=== PATIENT | female | born 1950 | race Caucasian/White ===

== ENCOUNTER → 2017-07-26 | Outpatient (CLI) | payer MEDICARE ==
[~2017-07-26] MED LIST: ASPI-146 PO; ASPI-183 PO; CEPH500C3 PO; ENOX40IN SQ; HYDR12.56 PO; LORT7.5T3 PO; NORC5TAB PO; TELM1TAB56 PO; VALS320T6 PO
[2017-07-26 12:07] LABS: AUTOMATED NEUTROPHIL # 4.9 TH/MM3 (1.8-7.7); BASOPHIL % 0.5 % (0.0-2.0); EOSINOPHIL # 0.1 TH/MM3 (0-0.4); EOSINOPHIL % 1.5 % (0.0-4.0); HEMATOCRIT 42.1 % (35.0-46.0); HEMO FLAGS DIFF FINAL; LYMPH % 24.6 % (9.0-44.0); LYMPHOCYTE # 1.8 TH/MM3 (1.0-4.8); MEAN CELL VOLUME 89.7 FL (80.0-100.0); MEAN CORPUSCULAR HEMOGLOBIN 31.1 PG (27.0-34.0); MEAN CORPUSCULAR HGB CONC 34.7 % (32.0-36.0); MONO % 7.2 % (0.0-8.0); NEUT % 66.2 % (16.0-70.0); PLATELET COUNT 267 TH/MM3 (150-450); RED BLOOD COUNT 4.69 MIL/MM3 (4.00-5.30); RED CELL DISTRIBUTION WIDTH 14.2 % (11.6-17.2); WHITE BLOOD COUNT 7.4 TH/MM3 (4.0-11.0)
[2017-07-26 12:10] LABS: BLOOD, URINE NEG (NEG); COMMENT (UR) CULT NOT INDICATED; CULTURE IF INDICATED CULT NOT INDICATED; GLUCOSE,URINE NEG (NEG); KETONE, URINE NEG (NEG); MUCUS URINE FEW /lpf (OCC); NITRITE,URINE NEG (NEG); SQUAMOUS EPITHELIAL CELL URINE 1 /hpf (0-5); URINE COLOR LIGHT-YELLOW (YELLW/STRAW)
[2017-07-26 12:13] LABS: APTT (PATIENT) 27.1 SEC (24.3-30.1); PROTHROMBIN TIME - PATIENT 10.5 SEC (9.8-11.6)
[2017-07-26 12:48] LABS: WESTERGREN SEDIMENTATION RATE 15 mm/hr (0-30)
[2017-07-26 12:57] LABS: ALKALINE PHOSPHATASE 131 U/L (45-117); ALT (GPT) 24 U/L (10-53); ANION GAP 7 MEQ/L (5-15); AST (GOT) 13 U/L (15-37); BICARBONATE 28.2 MEQ/L (21.0-32.0); BLOOD UREA NITROGEN 10 MG/DL (7-18); CHLORIDE 102 MEQ/L (98-107); GLOMERULAR FILTRATION RATE 98 ML/MIN (>89); GLUCOSE,FASTING 93 MG/DL (74-99); POTASSIUM 4.1 MEQ/L (3.5-5.1); SODIUM (NA) 137 MEQ/L (136-145); TOTAL BILIRUBIN ADULT 0.4 MG/DL (0.2-1.0)
--- NOTE | 2017-07-26 13:02 | RADRPT ---
EXAM DATE/TIME: 07/26/2017 12:26 [facility] COMPARISON: No previous studies available for comparison. INDICATIONS : Evaluate for communicable disease, pneumothorax, pneumonia. Preop for total knee MEDICAL HISTORY : Hypertension. SURGICAL HISTORY : None. ENCOUNTER: Initial ACUITY: 1 day PAIN SCORE: 0/10 LOCATION: Bilateral chest FINDINGS: PA and lateral views of the chest demonstrate the lungs to be symmetrically aerated without evidence of mass, infiltrate or effusion. The cardiomediastinal contours are unremarkable. Osseous structure s are intact. CONCLUSION: No acute disease. Henrry Davila Jr., MD on July 26, 2017 at 13:00 Board Certified Radiologist. This report was verified electronically.
--- NOTE | 2017-07-27 14:33 | EKG ---
Date Performed: 07/26/2017 Time Performed: 11:45:01 PTAGE: 67 years EKG: Sinus rhythm WITH FIRST DEGREE AV BLOCK POSSIBLE LEFT ATRIAL ENLARGEMENT LOW QRS VOLTAGE IN PRECORDIAL LEADS NONS PECIFIC T-WAVE ABNORMALITY ABNORMAL ECG NO PREVIOUS TRACING DOCTOR: Sergei Gutierrez Interpretating Date/Time 07/27/2017 14:25:34
== END ==
LOC: CPRE 11:21
PROVIDERS: ATTEND Orthopaedic Surgery
DX: Z01.812 Encounter for preprocedural laboratory examination (principal); Z01.811 Encounter for preprocedural respiratory examination; Z01.810 Encounter for preprocedural cardiovascular examination; M79.609 Pain in unspecified limb; M25.50 Pain in unspecified joint; I44.0 Atrioventricular block, first degree; Z96.60 Presence of unspecified orthopedic joint implant
CPT/HCPCS: 36415; 71020; 80053; 81001; 85025; 85610; 85652; 85730; 93005

== ENCOUNTER 2017-08-11 08:51 | Inpatient (IN) | payer MEDICARE ==
[~2017-08-11] VITALS: Ht 162.6 cm; Wt 86.9 kg
[~2017-08-11 08:51] MED LIST changes: -ASPI-146 PO; -CEPH500C3 PO; -ENOX40IN SQ; -HYDR12.56 PO; -LORT7.5T3 PO; -NORC5TAB PO; -TELM1TAB56 PO
[2017-08-11] MEDS ORDERED: METOPROLOL TARTRATE 25 MG TAB PO PRN (10:15)
[2017-08-11] MEDS ORDERED: LACTATED RINGER'S 1000 ML IV PRN (10:15)
[2017-08-11] MEDS ORDERED: POVIDONE IODINE 5% (ANTISEPSIS KIT) 4 APPLICATIONS EACH NARE PRN (10:15)
[2017-08-11] MEDS ORDERED: CHLORHEXIDINE GLUCONATE 2 % 1 PACK (2 CLOTHS) TOPICAL PRN (10:15)
[2017-08-11] MEDS ORDERED: SODIUM CHLORID 0.9% 500 ML IV PRN (10:15)
[2017-08-11] MEDS ORDERED: POVIDONE IODINE 7.5% SCRUB 118 ML BOTTLE TOPICAL SCH (10:30)
[2017-08-11] MEDS ORDERED: VANCOMYCIN 1000 MG/NS 250 ML (for <70 kg) IV SCH ×2 (10:30)
[2017-08-11] MEDS ORDERED: ceFAZolin 2 GM PREMIX 50 ML IV SCH (10:30)
[2017-08-11] MEDS ORDERED: ROPIVACAINE PERI-ARTICULAR INJECTION. P-ARTICULR SCH ×5 (10:30)
[2017-08-11] MEDS ORDERED: DEXAMETHASONE SOD PHOS 20 MG/5 ML VIAL IV SCH (10:45)
[2017-08-11] MEDS ORDERED: GENTAMICIN SULFATE 80 MG/2 ML VIAL ONE (11:25)
[2017-08-11] MEDS ORDERED: BUPIVACAINE LIPOSOME PF 1.3% 20 ML VIAL ONE (11:26)
[2017-08-11] MEDS ORDERED: MIDAZOLAM HCL 2 MG/2 ML VIAL ONE (11:36)
[2017-08-11] MEDS: TRANEXAMIC ACID INJ 870 MG in SODIUM CHLORIDE 0.9% INJ 100 ML IV SCH ×2 (11:55→12:50)
--- NOTE | 2017-08-11 13:55 | PD.OP ---
cc: Guero Garcia MD Operative Report Date of Surgery: Aug 11, 2017 Preoperative Diagnosis: Right knee failed unicondylar medial arthroplasty Postoperative Diagnosis: Same Procedure: Right knee revision total knee arthroplasty Anesthesia: Spinal and adductor canal block Surgeon: Guero Garcia Stretcher Operator(s): KODY Ochoa The surgical procedure was assisted by my Advanced Registered Nurse Practitioner. My PROPERTY ADJUSTER presence was necessary throughout this case for the manipulation and positioning of the surgical extremity. My PROPERTY ADJUSTER was assisting me throughout the duration of this procedure. The skill set of an Advance Registered Nurse Practitioner was medically necessary to complete this procedure. During the surgical case, the archives technician was working at the back table and the Advance Registered Nurse Practitioner was directly assisting me. Operation and Findings: IMPLANTS: DePuy Attune: Patella: size 35. Femur, posterior stabilized size 5. Tibia, rotating platform size 5. Tibial insert, rotating platform, posterior stabilized size 6 mm thickness. ESTIMATED BLOOD LOSS: 250 cc TOURNIQUET TIME: 48 minutes at 250 mmHg pressure. JUSTIFICATION FOR PROCEDURE: This patient had previously undergone a partial medial unicondylar arthroplasty. There was failure of this construct with shifting and change in position of the all polyethylene tibial component. PROCEDURE: The patient was brought back to the operative theatre. Adequate anesthesia was obtained. The patient received intravenous vancomycin and Ancef. The lower extremity was prepped and draped in the usual sterile fashion.The leg was exsanguinated, the tourniquet was raised. We incorporated the previous medial/anterior incision into a curvilinear anterior incision. This was Followed by medial parapatellar arthrotomy was performed. There was a moderate amount of effusion which was brownish fluid that had increased viscosity with small fatty blobby levels noted. No gross purulence was noted. We took a fluid swab culture of this. Additionally we excised some brownish grayish synovium and sent this for a permanent tissue culture. Osteotomy of the patella was performed. We drilled holes for the patella. We trialed the patella component. We placed an intramedullary guide into the distal femur. We measured for a distal femoral resection, with the previous femoral component in position. We then removed the femoral component using osteotomes. The femoral component was well fixed. When we remove the component we did not lose significant bone. We ultimately resected 12 mm off of the distal femur in 5 degrees of valgus. The remnants of the ACL and PCL were resected. The tibial component was inspected. There were fragments of cement that were noted around the baseplate which were loose and out of position. The baseplate was significantly rotated. The polyethylene itself did not show any significant signs of wear characteristics. Osteotomy of the proximal tibia was performed, resecting 5 mm off of the medial side, which equaled 12 mm off of the lateral side. This got us entirely below the previous tibial component and its cement mantle. This was done with 3 degrees of posterior slope using an extramedullary guide. The distal end of the guide was placed in the mid aspect of the ankle. The femur was sized, and four chamfer cuts were completed in 3 of external rotation. We confirmed that rotation was correct by using the epicondylar axis as well. We then cut the central box in the distal femur to replace the PCL. We resected the remnants of the menisci and removed osteophytes off of the femur and tibia. We then trialed the knee. We punched the tibia for the keel, and then used standard technique to cement in components. Excess cement was removed. We trialed the knee again and the final polyethylene thickness was chosen to provide extension to 0 degrees, and flexion of 130 degrees to gravity, and 140 with gentle pressure. The ligaments were appropriately balanced. Lateral release was necessary to obtain excellent patellofemoral tracking. The tourniquet was released and adequate hemostasis was obtained. An intra- articular injection of a ropivacaine cocktail was injected. The posterior knee was inspected for excess cement, which was removed. The final polyethylene was put into position after thorough irrigation. We then closed deep fascia with a #2 Stratafix followed by skin with 2-0 Vicryl followed by darlin. Postop plan is to weight-bear as tolerated. DVT prophylaxis will be performed with SCDfili, FAMILIA gale, early mobilization, and Lovenox followed by aspirin. Guero Garcia MD Aug 11, 2017 13:55
[2017-08-11] MEDS ORDERED: ENOX40IN SQ (13:57)
[2017-08-11] MEDS ORDERED: NORC5TAB PO (13:57)
[2017-08-11] MEDS ORDERED: ASPI-146 PO (13:57)
[2017-08-11] MEDS ORDERED: ONDANSETRON HCL 4 MG/2 ML VIAL IVP PRN (14:00)
[2017-08-11] MEDS ORDERED: Post-op Orders (for Pharmacy) MISC XX ONE (14:00)
[2017-08-11] MEDS ORDERED: MORPHINE SULFATE 4 MG/ML INJ IV PUSH PRN (14:00)
[2017-08-11] MEDS ORDERED: MAGNESIUM HYDROXIDE SUSP 30 ML CUP PO PRN (14:00)
[2017-08-11] MEDS ORDERED: diphenhydrAMINE HCL 50 MG/ML VIAL IV PUSH PRN (14:00)
[2017-08-11] MEDS ORDERED: ALUMINUM/MAGNESIUM/SIMETH 30 ML CUP PO PRN (14:00)
[2017-08-11] MEDS ORDERED: NALOXONE HCL 0.4 MG/ML AMP IV PUSH PRN (14:00)
[2017-08-11] MEDS ORDERED: ACETAMINOPHEN/HYDROcodone 325 MG/5 MG TAB PO PRN (14:00)
[2017-08-11] MEDS ORDERED: BISACODYL 10 MG SUPP RECTAL PRN (14:00)
[2017-08-11] MEDS ORDERED: DO NOT ADM ANY ANTICOAGULANT DRUGS PRN (14:14)
--- NOTE | 2017-08-11 14:25 | HHI.DCPOC ---
Discharge Care Plan Diagnosis: (1) Mechanical complic of internal orthopedic device, implant or graft (2) Primary localized osteoarthrosis, lower leg (3) Status post total knee replacement, left Your Health Problems Are: Difficulty with ADL Goals to Promote Your Health * To prevent worsening of your condition and complications * To maintain your health at the optimal level Directions to Meet Your Goals Take your medications as prescribed Follow your dietary instruction Follow activity as directed Keep your appointments as scheduled Take your immunizations and boosters as scheduled If your symptoms worsen call your PCP, if no PCP go to Urgent Care Center or Emergency Room Smoking is Dangerous to Your Health. Avoid second hand smoke Call the 24-hour hour crisis hotline for domestic abuse at Librado Naik Aug 11, 2017 14:25
--- NOTE | 2017-08-11 14:26 | HHI.FF ---
Face to Face Verification Diagnosis: (1) Primary localized osteoarthrosis, lower leg (2) Mechanical complic of internal orthopedic device, implant or graft (3) Status post total knee replacement, left Physical Therapy Gait training, Transfer training, bed to chair Knee: Total knee Left LE Weight Bearing: WB as tolerated Left LE Range of Motion: Active ROM Nursing Nursing: Sigifredo teaching, Dressing changes Dressing Changes: Daily dressing change I have seen patient Zulma Cantor on 08/11/17. My clinical findings support the need for the requested home health care services because: Limited ability to care for self High risk of falls I certify that my clinical findings support that this patient is homebound because: Post-op weakness Unsteady gait/balance Librado Naik Aug 11, 2017 14:26
[2017-08-11] MEDS ORDERED: COMMODE 3-IN-11 MIS (14:28)
[2017-08-11] MEDS ORDERED: WALKER WHEELS/F1 MIS (14:28)
[2017-08-11] MEDS ORDERED: CPMMACHINE (14:28)
[2017-08-11] MEDS ORDERED: PROPOFOL 500 MG/50 ML INJ 50 ML ONE (14:29)
[2017-08-11] MEDS: SODIUM CHLOR 0.9% 1000 ML INJ 1,000 ML IV SCH (14:39)
--- NOTE | 2017-08-11 14:57 | RADRPT ---
EXAM DATE/TIME: 08/11/2017 14:25 [facility] COMPARISON: No previous studies available for comparison. INDICATIONS : Post op left total knee replacement. MEDICAL HISTORY : None. SURGICAL HISTORY : Right total knee. ENCOUNTER: Initial ACUITY: 1 day PAIN SCORE: 0/10 LOCATION: Left Knee FINDINGS: AP and lateral views of the knee following arthroplasty reveals a prosthesis in anatomic alignment. F racture is not appreciated. CONCLUSION: Status post total knee arthroplasty. Higinio Early MD FACR on August 11, 2017 at 14:55 Board Certified Radiologist. This report was verified electronically.
[2017-08-11] MEDS ORDERED: SODIUM CHLORIDE 0.9% IV SCH (16:00)
[2017-08-11] MEDS ORDERED: TRANEXAMIC ACID IV SCH (16:00)
[2017-08-11 17:08] VITALS: BP 158/93; PULSE 102; RESP 18; TEMP 96.8; O2SAT 94
[2017-08-11] MEDS ORDERED: cloNIDine HCL 0.1 MG TAB PO PRN (19:45)
--- NOTE | 2017-08-11 19:49 | PD.CONS ---
HPI Service [facility] Hospitalists Consult Requested By Guero Rae Reason for Consult Medical management Primary Care Physician Rodrigo Brand MD Diagnoses: History of Present Illness This is a 67-year-old white female who presents to [facility] for an elective revision of left knee arthroplasty who underwent total left knee replacement today. The patient states that she has a history of also arthritis in bilateral knees status post partial knee replacements in 2011. The patient states she has been experiencing worsening pain in the left knee, recent why she went to visit Dr. Garcia. The patient currently denies any chest pain, shortness of breath, fevers, chills, nausea, vomiting, diarrhea, dizziness, dysuria. The patient states that her blood pressure has been very unstable and elevated this past week but she believes this is due to anxiety and stress due to the upcoming surgery. Patient has minimal pain in the left knee which is 2/ 10 in intensity and is it is nonradiating. Patient also elicit some pain in the left thigh. Review of Systems As per history of present illness, other systems reviewed by me and negative. Past Family Social History Allergies: Coded Allergies: Sulfa (Sulfonamide Antibiotics) (Unverified Adverse Reaction, Severe, DIARRHEA, 07/26/17) VOMITING AND DIARRHEA Past Medical History 1. Hypertension. 2. Reported Medications Reported Meds & Active Scripts Active Enoxaparin Inj (Enoxaparin Sodium) 40 Mg/0.4 Ml Syr 40 Mg SQ DAILY Start Aspirin after Lovenox is completed. Ecotrin Regular Strength (Aspirin) 325 Mg Tabdr 325 Mg PO DAILY Start Aspirin after Lovenox is completed. [place] (Hydrocodone-Acetaminophen) 5 Mg-325 Mg Tab 1-2 Tab PO Q4H PRN Reported Aspirin 325 Mg Tab 325 Mg PO DAILY Valsartan-Hydrochlorothiazide 320-25 Mg Tab 1 Tab PO DAILY Active Ordered Medications Current Medications Medications (Trade) Dose Ordered Sig/Urban Route Start Time Stop Time Status Last Admin Lactated Ringer's 1,000 ml @ 30 mls/hr Q24H PRN IV 08/11/17 10:15 08/14/17 10:14 08/11/17 10:25 Sodium Chloride 500 ml @ 30 mls/hr [id number] PRN IV 08/11/17 10:15 08/14/17 10:14 (Lopressor) 25 mg EDI COORDINATOR PRN PO 08/11/17 10:15 08/14/17 10:14 (Betadine 5% Antisepsis Kit) 1 applic EDI COORDINATOR PRN EACH NARE 08/11/17 10:15 08/14/17 10:14 08/11/17 10:35 (Chlorhexidine 2% Cloth) 3 pack EDI COORDINATOR PRN TOPICAL 08/11/17 10:15 08/14/17 10:14 08/11/17 10:00 (Betadine 7.5% Scrub) 1 applic ONCE TOPICAL 08/11/17 10:30 08/14/17 10:29 08/11/17 10:00 Cefazolin Sodium/ Dextrose 50 ml @ 100 mls/hr EDI COORDINATOR IV 08/11/17 10:30 08/14/17 10:29 Vancomycin HCl 1000 mg/Sodium Chloride 250 ml @ 250 mls/hr EDI COORDINATOR IV 08/11/17 10:30 08/14/17 10:29 08/11/17 10:56 Ropivacaine 24.63 ml/Ketorolac Tromethamine 30 mg/Epinephrine HCl 0.5 mg/ Clonidine 80 mcg/ Sodium Chloride 100 ml @ 200 mls/hr EDI COORDINATOR P-ARTICULR 08/11/17 10:30 08/14/17 10:29 08/11/17 12:51 (Decadron Inj) 10 mg EDI COORDINATOR IV 08/11/17 10:45 08/11/17 10:55 Sodium Chloride 1,000 ml @ 100 mls/hr Q10H IV 08/11/17 15:00 08/11/17 14:39 Cefazolin Sodium 1000 mg/Sodium Chloride 100 ml @ 200 mls/hr Q6H IV 08/11/17 17:00 08/12/17 05:29 08/11/17 16:52 (Decadron Inj) 10 mg ONCE ONCE IV 08/12/17 07:45 08/12/17 07:46 (Lovenox Inj) 40 mg Q24H SQ 08/12/17 13:00 08/21/17 13:01 ([place] 5-325 Mg) 1 tab Q4H PRN PO 08/11/17 14:00 ([place] 5-325 Mg) 2 tab Q4H PRN PO 08/11/17 14:00 Tranexamic Acid 869 mg/Sodium Chloride 108.69 ml @ 200 mls/ hr UNSCH IV 08/11/17 16:00 08/11/17 22:00 08/11/17 15:30 (Theragran M Tab) 1 tab BID PO 08/12/17 21:00 10/11/17 20:59 (Zofran Inj) 4 mg Q6H PRN IVP 08/11/17 14:00 (Colace) 100 mg BID PO 08/12/17 21:00 (Mag-Al Plus Susp Liq) 30 ml Q6H PRN PO 08/11/17 14:00 (Ambien) 5 mg HS PRN PO 08/11/17 21:00 (Dulcolax Supp) 10 mg DAILY PRN RECTAL 08/11/17 14:00 (Milk Of Magnesia Liq) 30 ml DAILY PRN PO 08/11/17 14:00 (Narcan Inj) 0.4 mg UNSCH PRN IV PUSH 08/11/17 14:00 (Benadryl Inj) 25 mg Q6H PRN IV PUSH 08/11/17 14:00 (Morphine Inj) 2 mg Q3H PRN IV PUSH 08/11/17 14:00 Miscellaneous Information ALL NURSING DEPARTME... UNSCH PRN .XX 08/11/17 14:14 08/12/17 14:13 (Diovan) 320 mg DAILY PO 08/12/17 09:00 (Hydrodiuril) 25 mg DAILY PO 08/12/17 09:00 Physical Exam Vital Signs Vital Signs Date Time Temp Pulse Resp B/P (MAP) Pulse Ox O2 Delivery O2 Flow Rate FiO2 08/11/17 17:08 96.8 102 18 158/93 (114) 94 08/11/17 17:00 97.4 100 18 146/76 (99) 94 Room Air 08/11/17 16:00 97 18 140/71 (94) 95 Room Air 08/11/17 15:45 97 18 141/73 (95) 98 Room Air 08/11/17 15:30 95 18 143/73 (96) 96 Nasal Cannula 2 08/11/17 15:15 92 21 132/70 (90) 96 Nasal Cannula 2 08/11/17 15:00 91 20 133/70 (91) 93 Nasal Cannula 2 08/11/17 14:45 91 21 125/65 (85) 96 Nasal Cannula 2 08/11/17 14:30 91 22 125/67 (86) 94 Nasal Cannula 2 08/11/17 14:15 93 25 116/66 (83) 94 Nasal Cannula 2 08/11/17 14:13 97.4 94 20 115/66 (82) 93 Nasal Cannula 2 08/11/17 10:38 98.1 79 18 164/97 (119) 97 Physical Exam GENERAL: This is a well-nourished, well-developed patient, in no apparent distress. SKIN: No rashes, ecchymoses or lesions. Cool and dry. HEAD: Atraumatic. Normocephalic. No temporal or scalp tenderness. EYES: Pupils equal round and reactive. Extraocular motions intact. No scleral icterus. No injection or drainage. ENT: Nose without bleeding, purulent drainage or septal hematoma. Throat without erythema, tonsillar hypertrophy or exudate. Uvula midline. Airway patent. NECK: Trachea midline. No JVD or lymphadenopathy. Supple, nontender, no meningeal signs. CARDIOVASCULAR: Regular rate and rhythm without murmurs, gallops, or rubs. RESPIRATORY: Clear to auscultation. Breath sounds equal bilaterally. No wheezes , rales, or rhonchi. GASTROINTESTINAL: Abdomen soft, non-tender, nondistended. No hepato-splenomegaly , or palpable masses. No guarding. MUSCULOSKELETAL: Extremities without clubbing, cyanosi. Left knee is in an immobilizer, moderately swollen and tender to palpation. Patient also has some tenderness in the left thigh. No calf tenderness. Negative Homans sign bilaterally. NEUROLOGICAL: Awake and alert. Cranial nerves II through XII intact. Motor and sensory grossly within normal limits. Five out of 5 muscle strength in all muscle groups. Normal speech. Laboratory Date/Time Source Procedure Growth Status 08/11/17 14:26 Wound Knee Fungal Smear Pending Received 08/11/17 14:26 Wound Knee Fungal Culture Pending Received Imaging Last Impressions Knee X-Ray 08/11/17 4327 Signed Impressions: Service Date/Time: Friday, August 11, 2017 14:25 - CONCLUSION: Status post total knee arthroplasty. Higinio Early MD FACR Assessment and Plan Problem List: (1) Status post total knee replacement, left ICD Code: Z96.652 - Presence of left artificial knee joint Plan: Management as per orthopedic surgery recommendations. Continue pain control as per orthopedic surgery. Chemotherapy prophylaxis as per orthopedic surgery. (2) Primary localized osteoarthrosis, lower leg ICD Code: M17.10 - Unilateral primary osteoarthritis, unspecified knee Plan: Status post revision of left total knee arthroplasty. (3) HTN (hypertension) ICD Code: I10 - Essential (primary) hypertension Plan: Seems a slightly elevated. Continue home antihypertensive medication. The patient is currently on Diovan and I will place on clonidine as needed. Assessment and Plan DVT prophylaxis: On Lovenox subcutaneously. Discussed Condition With Patient, RN. Problem Qualifiers (1) Primary localized osteoarthrosis, lower leg: Qualified Codes: M17.12 - Unilateral primary osteoarthritis, left knee (2) HTN (hypertension): Qualified Codes: I10 - Essential (primary) hypertension Darin Philippe MD Aug 11, 2017 19:49
[2017-08-11 20:20] VITALS: BP 121/71; PULSE 100; RESP 16; TEMP 97.3; O2SAT 96
[2017-08-11] MEDS ORDERED: ZOLPIDEM TARTRATE 5 MG TAB PO PRN (21:00)
[2017-08-12 00:25] VITALS: BP 147/80; PULSE 93; RESP 16; TEMP 96.8; O2SAT 95
[2017-08-12] MEDS: SODIUM CHLOR 0.9% 1000 ML INJ 1,000 ML IV SCH (01:00)
[2017-08-12] MEDS: ACETAMINOPHEN/HYDROcodone 325 MG/5 MG TAB PO PRN ×3 (01:27→15:30)
[2017-08-12 04:15] VITALS: BP 129/70; PULSE 86; RESP 16; TEMP 96.9; O2SAT 96
[2017-08-12 06:55] LABS: HEMATOCRIT 33.6 % (35.0-46.0); MEAN CELL VOLUME 90.3 FL (80.0-100.0); MEAN CORPUSCULAR HEMOGLOBIN 31.4 PG (27.0-34.0); MEAN CORPUSCULAR HGB CONC 34.8 % (32.0-36.0); PLATELET COUNT 213 TH/MM3 (150-450); RED BLOOD COUNT 3.72 MIL/MM3 (4.00-5.30); RED CELL DISTRIBUTION WIDTH 13.2 % (11.6-17.2); REVIEW FLAG FINAL; WHITE BLOOD COUNT 12.5 TH/MM3 (4.0-11.0)
[2017-08-12] MEDS ORDERED: DEXAMETHASONE SOD PHOS 20 MG/5 ML VIAL IV ONE (07:45)
[2017-08-12 07:58] VITALS: BP 118/63; PULSE 81; RESP 18; TEMP 95.8; O2SAT 97
[2017-08-12] MEDS ORDERED: NON-FORMULARY DRUG (Valsartan-Hydrochlorothiazide 1 TAB) PO SCH (09:00)
[2017-08-12] MEDS ORDERED: HYDROCHLOROTHIAZIDE 25 MG TAB PO SCH (09:00)
[2017-08-12] MEDS ORDERED: VALSARTAN 160 MG TAB PO SCH (09:00)
[2017-08-12 11:05] VITALS: O2SAT 98
[2017-08-12 12:00] VITALS: BP 156/70; PULSE 85; RESP 18; TEMP 95.9; O2SAT 95
[2017-08-12] MEDS ORDERED: ENOXAPARIN SODIUM 40 MG/0.4 ML SYRINGE SQ SCH (13:00)
--- NOTE | 2017-08-12 13:06 | PD.ORT.PN ---
Subjective Post Op Day #: 1 Subjective Remarks Patient is OOB in chair with mild pain to the left knee. Patient has been ambulatory and is considering going home today or tomorrow with home health. Objective Vitals Vital Signs Date Time Temp Pulse Resp B/P (MAP) Pulse Ox O2 Delivery O2 Flow Rate FiO2 08/12/17 12:00 95.9 85 18 156/70 (98) 95 08/12/17 11:05 98 21 08/12/17 07:58 95.8 81 18 118/63 (81) 97 08/12/17 04:15 96.9 86 16 129/70 (89) 96 08/12/17 00:25 96.8 93 16 147/80 (102) 95 08/11/17 20:20 97.3 100 16 121/71 (88) 96 08/11/17 17:08 96.8 102 18 158/93 (114) 94 08/11/17 17:00 97.4 100 18 146/76 (99) 94 Room Air 08/11/17 16:00 97 18 140/71 (94) 95 Room Air 08/11/17 15:45 97 18 141/73 (95) 98 Room Air 08/11/17 15:30 95 18 143/73 (96) 96 Nasal Cannula 2 08/11/17 15:15 92 21 132/70 (90) 96 Nasal Cannula 2 08/11/17 15:00 91 20 133/70 (91) 93 Nasal Cannula 2 08/11/17 14:45 91 21 125/65 (85) 96 Nasal Cannula 2 08/11/17 14:30 91 22 125/67 (86) 94 Nasal Cannula 2 08/11/17 14:15 93 25 116/66 (83) 94 Nasal Cannula 2 08/11/17 14:13 97.4 94 20 115/66 (82) 93 Nasal Cannula 2 I/O 08/11/17 08/11/17 08/11/17 08/12/17 08/12/17 08/12/17 07:00 15:00 23:00 07:00 15:00 23:00 Intake Total 800 ml 664 ml 1108 ml Output Total 200 ml Balance 600 ml 664 ml 1108 ml Intake Oral 410 ml 360 ml IV Total 254 ml 748 ml Other 800 ml Output Estimated Blood Loss 200 ml # Voids 1 1 # Bowel Movements 0 0 Result Diagram: 11/30/17 0619 Imaging Last 24 hours Impressions Knee X-Ray 08/11/17 1347 Signed Impressions: Service Date/Time: Friday, August 11, 2017 14:25 - CONCLUSION: Status post total knee arthroplasty. Higinio Early MD FACR Procedures Left knee revision TKA Objective Remarks The patient's dressing was changed with scant serosanguineous drainage. The incision is well approximated with surgical clips intact. No redness or signs or symptoms of infection. EHL/TA/G intact. 2+ pedal pulse. Calf is soft and nontender. + SILT. 24 hour cultures shows no growth. Assessment & Plan Ortho Post Op Day #: 1 Problem List: Assessment and Plan POD #1: Left knee revision TKA 1. WBAT LLE 2. Lovenox followed by ASA for DVT prophylaxis 3. Ice to the left knee PRN 4. Plan is for discharge home with home health today or tomorrow. 5. Patient will f/u with Dr. Garcia or KODY Tinoco as previously scheduled. 6. Daily dressing changes. 7. We will continue to follow intraoperative CX. Librado Naik Aug 12, 2017 13:06
[2017-08-12] MEDS ORDERED: MULTIVITAMINS/MINERALS THERAPEUTIC TAB PO SCH (21:00)
[2017-08-12] MEDS ORDERED: DOCUSATE SODIUM 100 MG CAP PO SCH (21:00)
--- NOTE | 2017-08-13 16:51 | HHI.DS ---
Discharge Summary Admission Date Aug 11, 2017 at 08:51 Discharge Date: Aug 12, 2017 Admitting Diagnosis Left knee revision total knee arthroplasty Primary localized OA, lower leg Diagnosis: (1) Mechanical complic of internal orthopedic device, implant or graft Diagnosis: Principal ICD Codes: T84.498A - Other mechanical complication of other internal orthopedic devices, implants and grafts, initial encounter (2) Primary localized osteoarthrosis, lower leg Diagnosis: Principal ICD Codes: M17.10 - Unilateral primary osteoarthritis, unspecified knee (3) Status post total knee replacement, left Diagnosis: Principal ICD Codes: Z96.652 - Presence of left artificial knee joint Procedures Left knee revision TKA Brief History This is a 67 year old female patient with a failed uniarthroplasty and OA of the left knee. CBC/BMP: 08/12/17 0619 Significant Findings Laboratory Tests Test 08/12/17 06:19 White Blood Count 12.5 TH/MM3 (4.0-11.0) Red Blood Count 3.72 MIL/MM3 (4.00-5.30) Hematocrit 33.6 % (35.0-46.0) PE at Discharge The patient's dressing was changed with scant serosanguineous drainage. The incision is well approximated with surgical clips intact. No redness or signs or symptoms of infection. EHL/TA/G intact. 2+ pedal pulse. Calf is soft and nontender. + SILT. 24 hour cultures shows no growth. Hospital Course The patient was admitted to the hospital for a failed uniarthroplasty and sever OA of the left knee. The patient had a left TKA. The patient's surgery went well without complication. The patient is WBAT. The patient is on a regular diet. The patient was placed on Lovenox followed by ASA for DVT prophylaxis. The patient was discharged home with home health and will f/u in the office with Dr. Garcia or KODY Tinoco as previously scheduled. Pt Condition on Discharge: Stable Discharge Disposition: Disch w/ Home Health Serv Discharge Instructions Diet Instructions: As Tolerated, No Restrictions Activities You Can Perform: Weight Bearing as Yogi Activities to Avoid: Strenuous Activity Follow up Referrals: Orthopedics with Guero Garcia MD New Medications: Aspirin (Ecotrin Regular Strength) 325 Mg Tabdr 325 MG PO DAILY for Prevent Blood Clot, #30 TAB 0 Refills Start Aspirin after Lovenox is completed. Commode 3-in-1 (Commode 3-in-1) 1 Mis Mis EA .ROUTE DIRECTED, #1 0 Refills CPM-Continuous Passive Motion Machine (CPM-Continuous Passive Motion Machine) 1 Ea Device EA .ROUTE DIRECTED, #1 0 Refills Enoxaparin Inj (Enoxaparin Inj) 40 Mg/0.4 Ml Syr 40 MG SQ DAILY for Blood Clot Prevention, #10 SYRINGE 0 Refills Start Aspirin after Lovenox is completed. Hydrocodone-Acetaminophen ([place]) 5 Mg-325 Mg Tab 1-2 TAB PO Q4H PRN for PAIN, #60 TAB 0 Refills Walker with Front Wheels (Walker with Front Wheels) 1 Mis Mis EA .ROUTE DIRECTED, #1 0 Refills Continued Medications: Valsartan-Hydrochlorothiazide (Valsartan-Hydrochlorothiazide) 320-25 Mg Tab 1 TAB PO DAILY for Blood Pressure Management, #30 TAB 0 Refills Discontinued Medications: Aspirin (Aspirin) 325 Mg Tab 325 MG PO DAILY, #30 TAB 0 Refills Librado Naik Aug 13, 2017 16:51
== END 2017-08-12 17:52 | disposition home health service (06) | DRG 468 ==
LOC: HSDI 08:51 → EDSTATUS 11:30 → N06A 17:14
PROVIDERS: ADMIT Orthopaedic Surgery; ATTEND Orthopaedic Surgery
PROC: 0SRD0J9 Replacement of Left Knee Joint with Synthetic Substitute, Cemented, Open Approach (ICD-10-PCS; 2017-08-11)
PROC: 3E0T3BZ Introduction of Anesthetic Agent into Peripheral Nerves and Plexi, Percutaneous Approach (ICD-10-PCS; 2017-08-11)
PROC: 0SPW0JZ Removal of Synthetic Substitute from Left Knee Joint, Tibial Surface, Open Approach (ICD-10-PCS; principal; 2017-08-11 11:30)
DX: T84.023A Instability of internal left knee prosthesis, initial encounter (principal); I10 Essential (primary) hypertension; F41.9 Anxiety disorder, unspecified; M17.12 Unilateral primary osteoarthritis, left knee
CPT/HCPCS: 73560; 85027; 86850; 86900; 86901; 87015; 87070; 87102; 87116; 87176; 87205; 87206; 94150; C1776; C9290; J0690; J0735; J1100; J1580; J1650; J1885; J2250; J2795; J3370; J7030; J7050; J7120; L1830

== ENCOUNTER → 2017-09-30 | Outpatient (CLI) | payer MEDICARE ==
[~2017-09-30] MED LIST changes: +ASPI-146 PO; -ASPI-183 PO; +COMMODE 3-IN-11 MIS; +CPMMACHINE; +ENOX40IN SQ; +NORC5TAB PO; +WALKER WHEELS/F1 MIS
[2017-09-30 12:46] LABS: AUTOMATED NEUTROPHIL # 4.8 TH/MM3 (1.8-7.7); BASOPHIL % 0.4 % (0.0-2.0); EOSINOPHIL # 0.1 TH/MM3 (0-0.4); EOSINOPHIL % 0.9 % (0.0-4.0); HEMATOCRIT 42.2 % (35.0-46.0); HEMOGLOBIN 14.3 GM/DL (11.6-15.3); LYMPH % 21.2 % (9.0-44.0); LYMPHOCYTE # 1.5 TH/MM3 (1.0-4.8); MEAN CELL VOLUME 88.1 FL (80.0-100.0); MEAN CORPUSCULAR HEMOGLOBIN 29.9 PG (27.0-34.0); MEAN CORPUSCULAR HGB CONC 33.9 % (32.0-36.0); MEAN PLATELET VOLUME 8.7 FL (7.0-11.0); MONO % 7.6 % (0.0-8.0); MONOCYTE # 0.5 TH/MM3 (0-0.9); NEUT % 69.9 % (16.0-70.0); PLATELET COUNT 306 TH/MM3 (150-450); RED BLOOD COUNT 4.79 MIL/MM3 (4.00-5.30); RED CELL DISTRIBUTION WIDTH 13.5 % (11.6-17.2); WHITE BLOOD COUNT 6.9 TH/MM3 (4.0-11.0)
[2017-09-30 12:55] LABS: PROTHROMBIN TIME - PATIENT 10.5 SEC (9.8-11.6)
[2017-09-30 12:58] LABS: BILIRUBIN, URINE NEG (NEG); BLOOD, URINE NEG (NEG); GLUCOSE,URINE NEG (NEG); KETONE, URINE NEG (NEG); MUCUS URINE FEW /lpf (OCC); NITRITE,URINE NEG (NEG); PH, URINE 6.5 (5.0-8.5); SQUAMOUS EPITHELIAL CELL URINE <1 /hpf (0-5); URINE COLOR LIGHT-YELLOW (YELLW/STRAW); URINE LEUKOCYTE ESTERASE NEG (NEG)
[2017-09-30 13:02] LABS: WESTERGREN SEDIMENTATION RATE 14 mm/hr (0-30)
[2017-09-30 13:13] LABS: ALBUMIN 4.1 GM/DL (3.4-5.0); AST (GOT) 10 U/L (15-37); BLOOD UREA NITROGEN 8 MG/DL (7-18); CALCIUM 9.1 MG/DL (8.5-10.1); CREATININE 0.48 MG/DL (0.50-1.00); GLOMERULAR FILTRATION RATE 130 ML/MIN (>89); GLUCOSE,FASTING 86 MG/DL (74-99); SODIUM (NA) 133 MEQ/L (136-145)
[2017-09-30 13:14] LABS: ALT (GPT) 17 U/L (10-53); BICARBONATE 28.1 MEQ/L (21.0-32.0); CHLORIDE 97 MEQ/L (98-107)
[2017-09-30 13:17] LABS: ALKALINE PHOSPHATASE 121 U/L (45-117); TOTAL BILIRUBIN ADULT 0.4 MG/DL (0.2-1.0); TOTAL PROTEIN 7.7 GM/DL (6.4-8.2)
--- NOTE | 2017-09-30 13:38 | RADRPT ---
EXAM DATE/TIME: 09/30/2017 12:58 [facility] COMPARISON: CHEST PA & LAT, July 26, 2017, 12:26. INDICATIONS : Evaluate for pneumonia, pneumothorax or communicable disease. Preop chest for right knee replacement on 10/30/17 MEDICAL HISTORY : Hypertension. SURGICAL HISTORY : Total knee replacement, left. ENCOUNTER: Initial ACUITY: 1 day PAIN SCORE: 0/10 LOCATION: Bilateral chest FINDINGS: PA and lateral views of the chest demonstrate the lungs to be symmetrically aerated without evidence of mass, infiltrate or effusion. The cardiomediastinal contours are unremarkable. Osseous structure s are intact. CONCLUSION: Normal examination. Rodrigo Meyer MD on September 30, 2017 at 13:36 Board Certified Radiologist. This report was verified electronically.
--- NOTE | 2017-09-30 18:00 | EKG ---
Date Performed: 09/30/2017 Time Performed: 12:17:00 PTAGE: 67 years EKG: Sinus rhythm with borderline 1st degree A-V block Nonspecific T wave changes Low QRS voltages in precordial leads Borderline ECG No significant change from prior electrocardiogram. PREVIOUS TRACING : 07/26/2017 11.45 DOCTOR: Andres Mcdonald Interpretating Date/Time 09/30/2017 17:59:25
== END ==
LOC: CPRE 11:42
PROVIDERS: ATTEND Orthopaedic Surgery
DX: Z01.812 Encounter for preprocedural laboratory examination (principal); Z01.811 Encounter for preprocedural respiratory examination; Z01.810 Encounter for preprocedural cardiovascular examination; M79.609 Pain in unspecified limb; M25.50 Pain in unspecified joint; Z96.60 Presence of unspecified orthopedic joint implant; Z96.652 Presence of left artificial knee joint; Z96.651 Presence of right artificial knee joint; I44.0 Atrioventricular block, first degree
CPT/HCPCS: 36415; 71046; 80053; 81001; 85025; 85610; 85652; 85730; 93005

== ENCOUNTER 2017-10-20 05:38 | Inpatient (IN) | payer MEDICARE ==
[~2017-10-20] VITALS: Ht 162.6 cm; Wt 87.4 kg
[~2017-10-20 05:38] MED LIST changes: -COMMODE 3-IN-11 MIS; -CPMMACHINE; -ENOX40IN SQ; -WALKER WHEELS/F1 MIS
[2017-10-20] MEDS ORDERED: CHLORHEXIDINE GLUCONATE 2 % 1 PACK (2 CLOTHS) TOPICAL PRN (06:15)
[2017-10-20] MEDS ORDERED: POVIDONE IODINE 7.5% SCRUB 118 ML BOTTLE TOPICAL SCH (06:15)
[2017-10-20] MEDS ORDERED: VANCOMYCIN 1000 MG/NS 250 ML (for <70 kg) IV SCH ×2 (06:15)
[2017-10-20] MEDS ORDERED: LACTATED RINGER'S 1000 ML IV PRN (06:15)
[2017-10-20] MEDS ORDERED: SODIUM CHLORID 0.9% 500 ML IV PRN (06:15)
[2017-10-20] MEDS ORDERED: ceFAZolin 2 GM PREMIX 50 ML IV SCH (06:15)
[2017-10-20] MEDS ORDERED: METOPROLOL TARTRATE 25 MG TAB PO PRN (06:15)
[2017-10-20] MEDS ORDERED: INSULIN HUMAN REGULAR 1,000 UNITS/10 ML VIAL SQ PRN (06:15)
[2017-10-20] MEDS ORDERED: POVIDONE IODINE 5% (ANTISEPSIS KIT) 4 APPLICATIONS EACH NARE PRN (06:15)
[2017-10-20] MEDS ORDERED: VANCOMYCIN 1 GM/200 ML INJ 200 ML IV ONE (06:45)
--- NOTE | 2017-10-20 07:03 | HHI.FF ---
Face to Face Verification Diagnosis: (1) Mechanical complic of internal orthopedic device, implant or graft (2) Status post total knee replacement, right Physical Therapy Gait training, Transfer training, bed to chair Knee: Total knee Right LE Weight Bearing: WB as tolerated Right LE Range of Motion: Active ROM Nursing Nursing: Sigifredo teaching Dressing Changes: Do not change dressing Additional Instructions 1st dressing change in the office I have seen patient Zumla Cantor on 10/20/17. My clinical findings support the need for the requested home health care services because: Limited ability to care for self High risk of falls I certify that my clinical findings support that this patient is homebound because: Post-op weakness Unsteady gait/balance Librado Naik Oct 20, 2017 07:03
--- NOTE | 2017-10-20 07:03 | HHI.DCPOC ---
Discharge Care Plan Diagnosis: (1) Status post total knee replacement, right (2) Mechanical complic of internal orthopedic device, implant or graft Your Health Problems Are: Difficulty with ADL Goals to Promote Your Health * To prevent worsening of your condition and complications * To maintain your health at the optimal level Directions to Meet Your Goals Take your medications as prescribed Follow your dietary instruction Follow activity as directed Keep your appointments as scheduled Take your immunizations and boosters as scheduled If your symptoms worsen call your PCP, if no PCP go to Urgent Care Center or Emergency Room Smoking is Dangerous to Your Health. Avoid second hand smoke Call the 24-hour hour crisis hotline for domestic abuse at Librado Naik Oct 20, 2017 07:02
[2017-10-20] MEDS ORDERED: CPMMACHINE (07:05)
[2017-10-20] MEDS ORDERED: COMMODE 3-IN-11 MIS (07:05)
[2017-10-20] MEDS ORDERED: WALKER WHEELS/F1 MIS (07:05)
[2017-10-20] MEDS ORDERED: GENTAMICIN SULFATE 80 MG/2 ML VIAL ONE ×2 (07:10→10:23)
[2017-10-20] MEDS ORDERED: MIDAZOLAM HCL 2 MG/2 ML VIAL ONE ×2 (07:54→11:28)
[2017-10-20] MEDS ORDERED: FAMOTIDINE 20 MG/2 ML VIAL ONE (07:55)
[2017-10-20] MEDS ORDERED: ACETAMINOPHEN 1000 MG/100 ML 100 ML IV ONE (07:55)
[2017-10-20] MEDS ORDERED: LIDOCAINE HCL 1% PF 5 ML AMPULE ONE (08:27)
[2017-10-20] MEDS ORDERED: BUPIVACAINE LIPOSOME PF 1.3% 20 ML VIAL ONE (08:27)
[2017-10-20] MEDS ORDERED: TRANEXAMIC ACID INJ 875 MG in SODIUM CHLORIDE 0.9% INJ 100 ML IV SCH ×2 (08:30→12:00)
[2017-10-20] MEDS ORDERED: DEXAMETHASONE SOD PHOS 20 MG/5 ML VIAL IV SCH (08:30)
[2017-10-20] MEDS ORDERED: ROPIVACAINE PERI-ARTICULAR INJECTION. P-ARTICULR SCH ×5 (08:30)
[2017-10-20] MEDS ORDERED: FAT EMULSION 20% INJ 0 ML ONE (08:37)
[2017-10-20] MEDS: SODIUM CHLOR 0.9% 1000 ML INJ 1,000 ML IV SCH ×2 (10:38→20:38)
--- NOTE | 2017-10-20 10:44 | PD.OP ---
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 My SHIRT PRESSER presence was necessary throughout this case for the manipulation and positioning of the surgical extremity. My SHIRT PRESSER was assisting me throughout the duration of this procedure. The skill set of an Advance Registered Nurse Practitioner was medically necessary to complete this procedure. During the surgical case, the surgical processor was working at the back table and the Advance Registered Nurse Practitioner was directly assisting me. Operation and Findings: IMPLANTS: DePuy Attune: Patella: size 32. Femur, posterior stabilized size 5. Tibia, rotating platform size 4. Tibial insert, rotating platform, posterior stabilized size 5 mm thickness. ESTIMATED BLOOD LOSS: 100 cc TOURNIQUET TIME: 47 minutes at 250 mmHg pressure. JUSTIFICATION FOR PROCEDURE: The patient has end-stage osteoarthritis to the knee. There is an attached conservative measures pathway form in the chart that describes the nonoperative measures that were undertaken prior to consideration of surgical management. The patient understood the risks and benefits of surgical management. See my office notes for further details PROCEDURE: The patient was brought back to the operative theatre. Adequate anesthesia was obtained. The patient received intravenous vancomycin and Ancef. The lower extremity was prepped and draped in the usual sterile fashion.The leg was exsanguinated, the tourniquet was raised. A standard anterior incision was performed (with incorporation of the medial previous incision) followed by medial parapatellar arthrotomy was performed. There was a small clear effusion of clear yellow fluid noted. End-stage arthritis was identified of the lateral compartment. The synovium had some arthritis changes to it especially near the medial compartment. We resected this. Osteotomy of the patella was performed. We drilled holes for the patella. We trialed the patella component. We placed an intramedullary guide into the distal femur. We ultimately resected 13 mm off of the distal femur in 5 degrees of valgus. Prior to completing the distal femoral cut we then turned our attention to the medial component which was removed. The femoral component was in good position but was loose and was not difficult to remove. There was minimal loss of bone with removal of this. We removed portions of cement as well. The remnants of the ACL and PCL were resected. Osteotomy of the proximal tibia was performed, resecting 7 mm off of the medial side. This was done with 3 degrees of posterior slope using an extramedullary guide. The distal end of the guide was placed in the mid aspect of the ankle. This cut was below the previous tibial component. The tibial component was found to be loose. There was some streaks of metal within the component showing some mild failure of the polyethylene although it was not grossly failed but was loose. The bone underneath it was soft likely for micromotion. We did take a culture of some of the soft bone on the femur and tibia. This was done into a culture swab. Overall we were able to retain a significant portion of the medial compartment bone. The femur was sized, and four chamfer cuts were completed using the epicondylar axis for rotation.. We then cut the central box in the distal femur to replace the PCL. We resected the remnants of the menisci and removed osteophytes off of the femur and tibia. We then trialed the knee. We punched the tibia for the keel, and then used standard technique to cement in components. Excess cement was removed. We trialed the knee again and the final polyethylene thickness was chosen to provide extension to 0 degrees, and flexion of 140 degrees to gravity. The ligaments were appropriately balanced. Lateral release was necessary to obtain excellent patellofemoral tracking. The tourniquet was released and adequate hemostasis was obtained. An intra- articular injection of a ropivacaine cocktail was injected. The posterior knee was inspected for excess cement, which was removed. The final polyethylene was put into position after thorough irrigation. We then closed deep fascia with a #2 Stratafix followed by skin with 2-0 Vicryl followed by Dermabond dressing. Postop plan is to weight-bear as tolerated. DVT prophylaxis will be performed with SCDs, FAMILIA hose, early mobilization, and Lovenox followed by aspirin. Guero Garcia MD Oct 20, 2017 10:44
[2017-10-20] MEDS ORDERED: ALUMINUM/MAGNESIUM/SIMETH 30 ML CUP PO PRN (10:45)
[2017-10-20] MEDS ORDERED: ONDANSETRON HCL 4 MG/2 ML VIAL IVP PRN (10:45)
[2017-10-20] MEDS ORDERED: MAGNESIUM HYDROXIDE SUSP 30 ML CUP PO PRN (10:45)
[2017-10-20] MEDS ORDERED: ACETAMINOPHEN/HYDROcodone 325 MG/5 MG TAB PO PRN (10:45)
[2017-10-20] MEDS ORDERED: diphenhydrAMINE HCL 50 MG/ML VIAL IV PUSH PRN (10:45)
[2017-10-20] MEDS ORDERED: ZOLPIDEM TARTRATE 5 MG TAB PO PRN (10:45)
[2017-10-20] MEDS ORDERED: MORPHINE SULFATE 2 MG/ML INJ IV PUSH PRN (10:45)
[2017-10-20] MEDS ORDERED: BISACODYL 10 MG SUPP RECTAL PRN (10:45)
[2017-10-20] MEDS ORDERED: NALOXONE HCL 0.4 MG/ML AMP IV PUSH PRN (10:45)
[2017-10-20] MEDS ORDERED: Post-op Orders (for Pharmacy) XX ONE (11:00)
[2017-10-20] MEDS ORDERED: DO NOT ADM ANY ANTICOAGULANT DRUGS PRN (11:00)
[2017-10-20] MEDS ORDERED: PROPOFOL 200 MG/20 ML AMP IV ONE (12:00)
[2017-10-20] MEDS ORDERED: LIDOCAINE HCL 1% PF 5 ML SYRINGE OTHER ONE (12:00)
[2017-10-20] MEDS ORDERED: *morphine SULFATE 10 MG/ML PERIprocedure ONLY ONE (12:01)
--- NOTE | 2017-10-20 12:14 | RADRPT ---
EXAM DATE/TIME: 10/20/2017 11:38 [facility] COMPARISON: No previous studies available for comparison. INDICATIONS : Post op right knee surgery MEDICAL HISTORY : None. SURGICAL HISTORY : None. ENCOUNTER: Initial ACUITY: 1 day PAIN SCORE: 4/10 LOCATION: Right knee FINDINGS: AP and lateral views of the knee following arthroplasty reveals a prosthesis in anatomic alignment. F racture is not appreciated. CONCLUSION: Status post total knee arthroplasty. Higinio Early MD FACR on October 20, 2017 at 12:12 Board Certified Radiologist. This report was verified electronically.
[2017-10-20] MEDS: ACETAMINOPHEN/HYDROcodone 325 MG/5 MG TAB PO PRN ×2 (15:13→20:44)
[2017-10-20 16:00] VITALS: BP 134/83; PULSE 89; RESP 16; TEMP 98; O2SAT 97
[2017-10-20 19:36] VITALS: BP 144/72; PULSE 95; RESP 18; TEMP 96.7; O2SAT 96
[2017-10-20 23:53] VITALS: BP 114/62; PULSE 87; RESP 17; TEMP 96.8; O2SAT 95
[2017-10-21] MEDS: ACETAMINOPHEN/HYDROcodone 325 MG/5 MG TAB PO PRN ×3 (03:11→16:19)
[2017-10-21 04:32] VITALS: BP 133/79; PULSE 78; RESP 18; TEMP 97.1; O2SAT 97
[2017-10-21] MEDS: SODIUM CHLOR 0.9% 1000 ML INJ 1,000 ML IV SCH (06:38)
[2017-10-21] MEDS ORDERED: DEXAMETHASONE SOD PHOS 20 MG/5 ML VIAL IV ONE (07:45)
[2017-10-21 08:00] VITALS: BP 126/77; PULSE 62; RESP 17; TEMP 95.5; O2SAT 98
[2017-10-21 08:01] LABS: HEMATOCRIT 27.8 % (35.0-46.0); HEMOGLOBIN 9.8 GM/DL (11.6-15.3); MEAN CELL VOLUME 87.4 FL (80.0-100.0); MEAN CORPUSCULAR HEMOGLOBIN 30.7 PG (27.0-34.0); MEAN CORPUSCULAR HGB CONC 35.1 % (32.0-36.0); MEAN PLATELET VOLUME 8.5 FL (7.0-11.0); PLATELET COUNT 185 TH/MM3 (150-450); RED BLOOD COUNT 3.18 MIL/MM3 (4.00-5.30); RED CELL DISTRIBUTION WIDTH 13.7 % (11.6-17.2); WHITE BLOOD COUNT 9.3 TH/MM3 (4.0-11.0)
[2017-10-21] MEDS ORDERED: VALSARTAN 160 MG TAB PO SCH (09:00)
[2017-10-21] MEDS ORDERED: HYDROCHLOROTHIAZIDE 25 MG TAB PO SCH (09:00)
[2017-10-21] MEDS ORDERED: NON-FORMULARY DRUG (Valsartan-Hydrochlorothiazide 1 TAB) PO SCH (09:00)
[2017-10-21] MEDS ORDERED: ENOXAPARIN SODIUM 40 MG/0.4 ML SYRINGE SQ SCH (10:00)
[2017-10-21 12:00] VITALS: BP 143/74; PULSE 87; RESP 17; TEMP 96.9; O2SAT 98
--- NOTE | 2017-10-21 12:39 | PD.ORT.PN ---
Subjective Post Op Day #: 1 Subjective Remarks Patient OOB resting comfortably in chair with minimal pain. Patient states she is ready for discharge home with home health. Objective Vitals Vital Signs Date Time Temp Pulse Resp B/P (MAP) Pulse Ox O2 Delivery O2 Flow Rate FiO2 10/21/17 12:00 96.9 87 17 143/74 (97) 98 10/21/17 08:00 95.5 62 17 126/77 (93) 98 10/21/17 04:32 97.1 78 18 133/79 (97) 97 10/20/17 23:53 96.8 87 17 114/62 (79) 95 10/20/17 19:36 96.7 95 18 144/72 (96) 96 10/20/17 16:00 98.0 89 16 134/83 (100) 97 10/20/17 13:30 97.9 86 20 145/79 (101) 93 Nasal Cannula 2 10/20/17 13:00 86 20 145/79 (101) 93 Nasal Cannula 2 I/O 10/20/17 10/20/17 10/20/17 10/21/17 10/21/17 10/21/17 07:00 15:00 23:00 07:00 15:00 23:00 Intake Total 1000 ml 720 ml 480 ml Output Total 100 ml Balance 900 ml 720 ml 480 ml Intake Oral 720 ml 480 ml IV Total 1000 ml Output Estimated Blood Loss 100 ml # Voids 4 2 # Bowel Movements 0 0 Result Diagram: 10/21/17 0700 Procedures Right Revision TKA Objective Remarks Patient's dressing changed and new waterproof dressing applied. EHL/TA/G intact. 2+ pedal pulse. Calf is soft and nontender. + SILT. Assessment & Plan Ortho Post Op Day #: 1 Problem List: Assessment and Plan POD #1: Right Revision TKA 1. WBAT RLE 2. Lovenox followed by ASA for DVT prophylaxis 3. Ice to the right hip PRN 4. Stable for discharge home with home health today. 5. F/U in the office as previously scheduled with Dr. Garcia or KODY Tinoco. Librado Naik Oct 21, 2017 12:39
[2017-10-21] MEDS ORDERED: DOCUSATE SODIUM 100 MG CAP PO SCH (21:00)
[2017-10-21] MEDS ORDERED: MULTIVITAMINS/MINERALS THERAPEUTIC TAB PO SCH (21:00)
--- NOTE | 2017-10-22 15:44 | HHI.DS ---
Discharge Summary Admission Date Oct 20, 2017 at 05:38 Discharge Date: Oct 21, 2017 Admitting Diagnosis Status post total knee replacement, right Diagnosis: (1) Status post total knee replacement, right Diagnosis: Principal ICD Codes: Z96.651 - Presence of right artificial knee joint (2) Mechanical complic of internal orthopedic device, implant or graft Diagnosis: Principal ICD Codes: T84.498A - Other mechanical complication of other internal orthopedic devices, implants and grafts, initial encounter Procedures Right Revision TKA Brief History This is a 67 year old female patient with OA of the right knee and wear on the unicondylar knee replacement. CBC/BMP: 10/21/17 0700 Significant Findings Laboratory Tests Test 10/21/17 07:00 Red Blood Count 3.18 MIL/MM3 (4.00-5.30) Hemoglobin 9.8 GM/DL (11.6-15.3) Hematocrit 27.8 % (35.0-46.0) PE at Discharge Patient's dressing changed and new waterproof dressing applied. EHL/TA/G intact. 2+ pedal pulse. Calf is soft and nontender. + SILT. Hospital Course The patient was admitted to the hospital with severe OA of the right knee to have a right revisionTKA. The patient's surgery went well with no complications. The patient is WBAT on the RLE. The patient was placed on Lovenox followed by ASA for DVT prophylaxis. The patient is on a regular diet. The patient was discharged home with home health. The patient will f/u in the office as previously scheduled with Dr. Garcia or KODY Tinoco. Pt Condition on Discharge: Stable Discharge Disposition: Disch w/ Home Health Serv Discharge Instructions Diet Instructions: As Tolerated, No Restrictions Activities You Can Perform: Weight Bearing as Yogi Activities to Avoid: Strenuous Activity Follow up Referrals: Orthopedics with Guero Garcia MD [facility]/ @ [facility]/ with Nurse Psychiatric Aide New Medications: Commode 3-in-1 (Commode 3-in-1) 1 Mis Mis EA .XX DIRECTED, #1 0 Refills CPM-Continuous Passive Motion Machine (CPM-Continuous Passive Motion Machine) 1 Ea Device EA .XX DIRECTED, #1 0 Refills Walker with Front Wheels (Walker with Front Wheels) 1 Mis Mis EA .XX DIRECTED, #1 0 Refills Continued Medications: Valsartan-Hydrochlorothiazide (Valsartan-Hydrochlorothiazide) 320-25 Mg Tab 1 TAB PO DAILY for Blood Pressure Management, #30 TAB 0 Refills Discontinued Medications: Aspirin DR (Ecotrin Regular Strength) 325 Mg Tabdr 325 MG PO DAILY for Prevent Blood Clot, #30 TAB 0 Refills Start Aspirin after Lovenox is completed. Librado Naik Oct 22, 2017 15:44
== END 2017-10-21 16:44 | disposition home health service (06) | DRG 468 ==
LOC: HSDI 05:38 → N06B 13:58
PROVIDERS: ADMIT Orthopaedic Surgery; ATTEND Orthopaedic Surgery
PROC: 0SRC0J9 Replacement of Right Knee Joint with Synthetic Substitute, Cemented, Open Approach (ICD-10-PCS; 2017-10-20)
PROC: 3E0T3BZ Introduction of Anesthetic Agent into Peripheral Nerves and Plexi, Percutaneous Approach (ICD-10-PCS; 2017-10-20)
PROC: 0SPC0JZ Removal of Synthetic Substitute from Right Knee Joint, Open Approach (ICD-10-PCS; principal; 2017-10-20 08:43)
DX: T84.032A Mechanical loosening of internal right knee prosthetic joint, initial encounter (principal); I10 Essential (primary) hypertension; M19.90 Unspecified osteoarthritis, unspecified site; M81.0 Age-related osteoporosis without current pathological fracture; E66.9 Obesity, unspecified; Z68.33 Body mass index [BMI] 33.0-33.9, adult; Z96.652 Presence of left artificial knee joint
CPT/HCPCS: 73560; 85027; 86850; 86900; 86901; 87015; 87070; 87102; 87116; 87205; 87206; 94150; C1776; C9290; J0131; J0690; J0735; J1100; J1580; J1650; J1885; J2250; J2270; J2795; J3010; J3370; J7050; J7120; L1830